=== PATIENT | male | born 1950 | race Two or more races ===

== ENCOUNTER 2018-10-01 11:09 | Emergency (ER) | payer OTHER ==
[~2018-10-01] VITALS: Ht 175.3 cm; Wt 79.8 kg
[~2018-10-01 11:09] MED LIST: ALTACE5 MG; CATAFLAM50 MG PO; ECOTRIN81 MG; INTESTINEX1 CAP PO; METOPROLOL SUCC25 MG; PROTONIX40 MG PO; SIMVASTATIN40 MG
[2018-10-01] MEDS ORDERED: ZITHROMAX TRI-500 MG PO (13:57)
[2018-10-01] MEDS ORDERED: TESSALON PERLE100 M1 PO (14:01)
[2018-10-01] MEDS ORDERED: TUSSI PRES-B L120 M1 PO (14:01)
== END 2018-10-01 14:03 | disposition home or self-care (01) ==
LOC: ER 11:09
DX: B34.9 Viral infection, unspecified (principal); J11.1 Influenza due to unidentified influenza virus with other respiratory manifestations

== ENCOUNTER 2022-03-31 08:10 | Emergency (ER) | payer OTHER ==
[~2022-03-31] VITALS: Ht 177.8 cm; Wt 72.6 kg
[~2022-03-31 08:10] MED LIST changes: +TESSALON PERLE100 M1 PO; +TUSSI PRES-B L120 M1 PO; +ZITHROMAX TRI-500 MG PO
== END 2022-03-31 11:12 | disposition home or self-care (01) ==
LOC: ER 08:10
DX: S01.122A Laceration with foreign body of left eyelid and periocular area, initial encounter (principal); W01.0XXA Fall on same level from slipping, tripping and stumbling without subsequent striking against object, initial encounter; Y93.9 Activity, unspecified; Y92.010 Kitchen of single-family (private) house as the place of occurrence of the external cause; I10 Essential (primary) hypertension; Z85.038 Personal history of other malignant neoplasm of large intestine

== ENCOUNTER 2023-10-08 09:54 | Emergency (ER) | payer OTHER ==
[~2023-10-08] VITALS: Ht 175.3 cm; Wt 72.6 kg
[~2023-10-08 09:54] MED LIST changes: +ALTACE1.25 MG PO; +SIMVASTATIN5 MG
[2023-10-08] MEDS ORDERED: METOPROLOL SUCC25 MG PO (10:52)
== END 2023-10-08 13:30 | disposition home or self-care (01) ==
LOC: ER 09:55
DX: R05.8 Other specified cough (principal); Z95.1 Presence of aortocoronary bypass graft; Z85.038 Personal history of other malignant neoplasm of large intestine; Z86.16 Personal history of COVID-19

== ENCOUNTER 2025-01-27 09:15 | Inpatient (IN) | payer OTHER, BC ==
[~2025-01-27] VITALS: Ht 152.4 cm; Wt 69.4 kg
[~2025-01-27 09:15] MED LIST changes: +METOPROLOL SUCC25 MG PO
--- NOTE | 2025-01-27 09:58 | NUR ---
SE RECIBE PACIENTE MASCULINO ALERTA Y ORIENTADO X3 QUIEN REFIERE VOMITOS Y MALESTAR HACE EMMANUELLE SEMANA. PACIENTE REFIERE KARRIE LLEGADO DE KRYSTA SARAI. SE MIDEN S/V Y SE UBICA.
[2025-01-27] MEDS ORDERED: PANTOPRAZOLE SODIUM 40 MG TABLET.DR PO ONE (10:30)
--- NOTE | 2025-01-27 10:39 | NUR ---
SE REALIZA LAB Y SE ADMINISTRA TX MEGHANA ORDEN MEDICA BAJO MEDIDAS ASEPTICAS. S SE ORIENTA PTE QUIEN REFIERE ENTENDER Y ACEPTAR.
[2025-01-27 10:49] LABS: BASO % 0.7 % (0.1-1.2); EOS # 0.63 (0.04-0.54); EOS % 9.3 % (0.7-7.0); HEMATOCRIT 39.6 % (40.1-51.0); HEMOGLOBIN 13.1 g/dL (13.7-17.5); LYMPH # 1.31 (1.18-3.74); LYMPH % 19.4 % (19.3-53.1); MEAN CORPUSCULAR HEMOGLOBIN 28.8 pg (25.6-32.2); MONO # 1.09 (0.24-0.82); NEUT # 3.67 (1.56-6.13); NEUT % 54.2 % (34.0-71.1); PLATELET COUNT 291 K/uL (163-369); RED BLOOD COUNT 4.55 M/uL (4.63-6.08); RED CELL DISTRIBUTION WIDTH 12.8 % (11.6-14.4)
[2025-01-27 10:52] LABS: MONO % 16.1 % (4.7-12.5)
[2025-01-27 11:27] LABS: ALBUMIN 3.3 gm/dL (3.4-5.0); BILIRUBIN TOTAL 0.43 mg/dL (0.3-1.2); CALCIUM 9.2 mg/dL (8.5-10.1); CREATININE SERUM 1.48 mg/dL (0.70-1.30); GFR 46.46; GLOBULINA 3.2 G/DL (2.4-3.5); POTASSIUM 4.03 mEq/L (3.5-5.1); TOTAL PROTEIN 6.5 gm/dL (6.4-8.2)
[2025-01-27] MEDS ORDERED: 0.9 % SODIUM CHLORIDE 500 ML IV ONE (12:15)
[2025-01-27] MEDS ORDERED: ONDANSETRON HCL 2 MG/ML VIAL IV PRN (12:15)
[2025-01-27] MEDS ORDERED: 0.9 % SODIUM CHLORIDE 1,000 ML IV SCH (18:30)
[2025-01-27] MEDS ORDERED: FAMOTIDINE/PF 20 MG/2 ML VIAL IV PUSH SCH (18:32)
[2025-01-27] MEDS ORDERED: PROMETHAZINE HCL 25 MG/ML AMPUL IM ONE (18:45)
[2025-01-27] MEDS ORDERED: ONDANSETRON HCL 4 MG in 0.9 % SODIUM CHLORIDE 50 ML IV PRN (18:45)
[2025-01-27] MEDS ORDERED: FAMOTIDINE/PF 20 MG/2 ML VIAL ONE (19:15)
[2025-01-27] MEDS ORDERED: PROMETHAZINE HCL 25 MG/ML AMPUL ONE (19:15)
[2025-01-27 20:02] LABS: INR 1.06; PROTHROMBIN TIME 11.5 SECONDS (9.0-11.5)
[2025-01-27 20:13] LABS: MAGNESIUM 1.7 mg/dL (1.8-2.4); PHOSPHOROUS 2.2 mg/dL (2.5-4.9)
[2025-01-27] MEDS ORDERED: ZOLPIDEM TARTRATE 10 MG TABLET PO SCH (21:00)
[2025-01-27 21:56] LABS: PH,URINE 7.5 (5.0-8.0); URINE APPEARANCE Clear; URINE BILIRRUBIN Negative (NEGATIVE); URINE BLOOD Negative; URINE COLOR Dark Yellow; URINE GLUCOSE Negative (NEGATIVE); URINE KETONE 15 (NEGATIVE); URINE LEUKOCYTE Negative; URINE NITRATE Negative
[2025-01-27 22:06] VITALS: BP 107/65
[2025-01-27 22:18] LABS: URINE BACTERIA 184.8 uL (0.0-1933); URINE CAST 2.65 uL (0.0-1.40); URINE EPITHELIAL CELLS 3.6 uL (0.0-38.8); URINE RBC 4.5 uL (0.0-20.8); URINE WBC 8.2 uL (0.0-23.2)
[2025-01-27 22:23] LABS: URINE PROTEIN 100 (NEGATIVE)
[2025-01-28 01:42] VITALS: BP 108/70; O2SAT 95
[2025-01-28 08:30] VITALS: BP 107/68; O2SAT 97
[2025-01-28] MEDS ORDERED: TAMSULOSIN HCL 0.4 MG CAP PO SCH (09:00)
[2025-01-28] MEDS ORDERED: METOPROLOL SUCCINATE 25 MG TAB.SR.24H PO SCH (09:00)
[2025-01-28] MEDS ORDERED: METRONIDAZOLE/SODIUM CHLORIDE 500 MG/100 ML PIGGYBACK IV SCH (13:00)
[2025-01-28] MEDS ORDERED: CIPROFLOXACIN IN 5 % DEXTROSE 100 ML IV SCH (17:00)
[2025-01-28] MEDS ORDERED: SIMVASTATIN 10 MG TABLET PO SCH (17:00)
[2025-01-28 18:24] VITALS: BP 111/70; O2SAT 98
[2025-01-29 01:31] VITALS: BP 115/67; O2SAT 96
[2025-01-29 08:26] LABS: BILIRUBIN TOTAL 0.44 mg/dL (0.3-1.2); CALCIUM 8.4 mg/dL (8.5-10.1); CREATININE SERUM 1.34 mg/dL (0.70-1.30); GFR 52.11; GLOBULINA 2.6 G/DL (2.4-3.5); POTASSIUM 4.77 mEq/L (3.5-5.1); TOTAL PROTEIN 5.6 gm/dL (6.4-8.2)
[2025-01-29] MEDS ORDERED: FAMOTIDINE/PF 20 MG/2 ML VIAL IV PUSH SCH (09:00)
[2025-01-29 09:39] VITALS: BP 125/79; O2SAT 99
[2025-01-29 16:02] LABS: FECAL LEUKOCYTES POSITIVE (NEGATIVE)
[2025-01-29] MEDS ORDERED: MAGNESIUM SULFATE IN WATER 50 ML IV NR (17:00)
[2025-01-29 17:40] VITALS: BP 167/74
[2025-01-29 17:46] VITALS: BP 136/86
[2025-01-29] MEDS ORDERED: POTASSIUM PHOS,M-BASIC-D-BASIC 15 MM in 0.9 % SODIUM CHLORIDE 250 ML IV ONE (19:00)
[2025-01-30 01:27] VITALS: BP 116/74
[2025-01-30 08:36] VITALS: BP 116/77; O2SAT 96
[2025-01-30 18:47] VITALS: BP 136/84
[2025-01-31 01:04] VITALS: BP 121/69
[2025-01-31 08:31] LABS: BASO % 0.7 % (0.1-1.2); EOS # 0.52 (0.04-0.54); EOS % 7.5 % (0.7-7.0); HEMATOCRIT 39.6 % (40.1-51.0); HEMOGLOBIN 13.2 g/dL (13.7-17.5); LYMPH # 1.08 (1.18-3.74); LYMPH % 15.5 % (19.3-53.1); MEAN CORPUSCULAR HEMOGLOBIN 28.6 pg (25.6-32.2); MONO # 0.96 (0.24-0.82); NEUT # 4.32 (1.56-6.13); NEUT % 62.2 % (34.0-71.1); PLATELET COUNT 299 K/uL (163-369); RED BLOOD COUNT 4.61 M/uL (4.63-6.08); RED CELL DISTRIBUTION WIDTH 12.8 % (11.6-14.4)
[2025-01-31 08:43] LABS: MONO % 13.8 % (4.7-12.5)
[2025-01-31 08:46] LABS: ALBUMIN 3.4 gm/dL (3.4-5.0); ALKALINE PHOSPHATASE 51 U/L (50-136); ALT/SGPT 38 U/L (12-78); ANION GAP 9 (10.0-20.0); AST/SGOT 24 U/L (15-37); BILIRUBIN TOTAL 0.38 mg/dL (0.3-1.2); BLOOD UREA NITROGEN 10 mg/dL (7-18); BUN CREA RATIO 7 (7.0-25.0); CALCIUM 8.5 mg/dL (8.5-10.1); CARBON DIOXIDE 26 mEq/L (21-32); CHLORIDE 112 mmol/L (98-107); GFR 49.54; GLOBULINA 2.6 G/DL (2.4-3.5); GLUCOSE FASTING 92 mg/dL (65-100); OSMOLALITY SERUM 284 MOSM/KG (275-295); POTASSIUM 3.83 mEq/L (3.5-5.1); SODIUM 143 mmol/L (136-145)
[2025-01-31 08:54] LABS: C-REACTIVE PROTEIN < 0.29 MG/DL (0.00-0.29)
[2025-01-31 09:10] VITALS: BP 143/89; O2SAT 99
[2025-01-31 16:00] VITALS: BP 126/78; O2SAT 97
[2025-02-01 00:59] VITALS: BP 109/65
[2025-02-01 08:57] VITALS: BP 137/89; O2SAT 100
[2025-02-01 16:00] VITALS: BP 149/95; O2SAT 97
[2025-02-02 01:25] VITALS: BP 106/65
[2025-02-02 09:12] VITALS: BP 108/69; O2SAT 99
== END 2025-02-02 17:20 | disposition home or self-care (01) | DRG 392 ==
LOC: ER 09:15 → MEDJ 19:25
PROVIDERS: General Practice; Internal Medicine; Internal Medicine Infectious Disease; ADMIT Internal Medicine; ATTEND Internal Medicine
PROC: BW21ZZZ Computerized Tomography (CT Scan) of Abdomen and Pelvis (ICD-10-PCS; principal; 2025-01-27)
DX: K52.89 Other specified noninfective gastroenteritis and colitis (principal); N17.9 Acute kidney failure, unspecified; E86.0 Dehydration; A05.9 Bacterial foodborne intoxication, unspecified; E78.5 Hyperlipidemia, unspecified; Z95.1 Presence of aortocoronary bypass graft; E11.22 Type 2 diabetes mellitus with diabetic chronic kidney disease; I12.9 Hypertensive chronic kidney disease with stage 1 through stage 4 chronic kidney disease, or unspecified chronic kidney disease; N18.9 Chronic kidney disease, unspecified; Z79.4 Long term (current) use of insulin; I25.10 Atherosclerotic heart disease of native coronary artery without angina pectoris